=== PATIENT | female | born 1945 | race Caucasian/White ===

== ENCOUNTER 2018-06-21 23:28 | Emergency (ER) | payer MEDICARE, MEDICAID ==
--- NOTE | 2018-06-22 00:05 | ED Physician Chart ---
ED Chief Complaint/HPI - Patient Information Date Seen:: 06/22/18 Time Seen:: 00:00 Chief Complaint:: cough History of Present Illness:: Patient's had cough productive of yellow sputum for 2 days. No fever. Patient' s had a pleuritic chest pain. Allergies:: Allergies Allergy/AdvReac Type Severity Reaction Status Date / Time No Known Allergies Allergy Verified 06/21/18 23:41 Vitals:: Vital Signs - 8 hr 06/21/18 23:35 Temp 98.1 F HR 100 RR 18 BP 138/68 O2 Sat % 98 Historian:: Patient Review:: Nurse's Note Reviewed, Transfer documents Reviewed ED Review of Systems - Review of Systems General/Constitutional: No fever, No chills Skin: No skin lesions Head: No headache Eyes: No loss of vision ENT: No earache Neck: No neck pain Pulmonary: Cough, Sputum GI: No nausea, No vomiting, No diarrhea G/U: No dysuria, No hematuria Musculoskeletal: No bone or joint pain, No muscle pain Psychiatric: Prior psych history Neurological: No syncope ED Past Medical History - Past Medical History Past Medical History: DM, Asthma/COPD, CVA/TIA, PUD/GERD, Other (pneumonitis; status post CVA with left-sided weakness; anxiety; depression; generally bladder ) Family History: Heart disease Social History: Non Smoker, No Alcohol Surgical History: Appendectomy, Cholecystectomy, other (trach; suprapubic catheter) Psychiatricy History: Depression, Other (anxiety) Medication: Reviewed Family Medical History - Family Member Aunt History Unknown: Yes Ethnicity: Unknown Living Status: Unknown Hx Family Cancer: (unknown) Hx Family Coronary Artery Disease: (unknown) Hx Family Congestive Heart Failure: (unknown) Hx Family Hypertension: (unknown) Hx Family Stroke: (unknown) Hx Family Diabetes: (unknown) Hx Family Seizures: (unknown) Hx Family Dementia: (unknown) Hx Family AIDS: (unknown) Hx Family HIV: No Hx Family COPD: (unknown) Hx Family Hepatitis: (unknown) Hx Family Psychiatric Problems: (unknown) Hx Family Tuberculosis: (unknown) Father History Unknown: Yes Ethnicity: Unknown Living Status: Unknown Hx Family Cancer: Yes Hx Family COPD: Yes Mother History Unknown: Yes Ethnicity: Unknown Living Status: Unknown ED Physical Exam - Physical Examination General/Constitutional: Well-developed, well-nourished, Alert, No distress Head: Atraumatic Eyes: Lids, conjuctiva normal Skin: Nl inspection, No rash ENMT: External ears, nose nl, TM canals nl, Nasal exam nl, Lips, teeth, gums nl , Oropharynx nl, Tonsils nl Neck: No nuchal rigidity Respiratory: Nl effort/Exclusion Other Respiratory comments:: harsh prolonged expiratory sounds Cardio Vascular: RRR, No murmur, gallop, rubs, NL S1 S2 GI: No tenderness/rebounding/guarding, No organomegaly, No hernia Other Extremities comments:: Extension deformity of ankles and feet Neuro/Psych: Alert/oriented ED Labs/Radiology/EKG Results - Lab Results Results: Laboratory Results - last 24 hr 06/21/18 06/21/18 00:10 00:10 WBC 9.5 RBC 4.51 Hgb 11.9 L Hct 36.4 L MCV 80.7 L MCH 26.4 L MCHC Differential 32.7 RDW 15.9 Plt Count 302 MPV 8.5 Neutrophils % 60.0 Lymphocytes % 27.4 Monocytes % 6.5 Eosinophils % 5.2 H Basophils % 0.9 Sodium 135 L Potassium 4.1 Chloride 101 Carbon Dioxide 25.9 Anion Gap 12.2 BUN 19 Creatinine 0.6 Est GFR ( Amer) TNP Est GFR (Non-Af Amer) TNP BUN/Creatinine Ratio 31.7 Glucose 236 H Calcium 9.4 - Radiology Results Results: Chest x-ray showed streaking at the left base compatible with bronchitis ED Assessment - Assessment General Assessment: I spoke to Dr. Hutchins and he wants the patient return to her senior living facility. Patient did receive prescription for Levaquin 500 milligrams daily 1 week and be given one 500 mg tablet in the emergency room before discharge ED Septic Shock - . Is Septic Shock (SBP<90, OR Lactate>4 mmol\L) present?: No - <6hrs of presentation: Vital Signs: Vital Signs - 8 hr 06/21/18 23:35 Temp 98.1 F HR 100 RR 18 BP 138/68 O2 Sat % 98 ED Reassessment (Disposition) - Reassessment Reassessment Condition:: Unchanged - Diagnosis Diagnosis:: Bronchitis; diabetes; hyperglycemia - Aftercare/Follow up Instructions Aftercare/Follow-Up Instructions:: Refer to Discharge Instructions - Patient Disposition Discharge/Transfer:: Home Condition at Disposition:: Stable, Unchanged
[2018-06-22 00:16] LABS: % BASOPHILS 0.9 % (0.0-2.0); % EOSINOPHILS 5.2 % (0.0-5.0); % LYMPHOCYTES 27.4 % (20.0-50.0); % MONOCYTES 6.5 % (2.0-10.0); BASOPHILE ABSOLUTE 0.1 Th/cumm (0-0.2); EOSINOPHILE ABSOLUTE 0.5 Th/cmm (0.1-0.4); HEMATOCRIT 36.4 % (41.0-60); HEMOGLOBIN 11.9 gm/dL (12-16); LYMPHOCYTE ABSOLUTE 2.6 Th/cmm (1.5-3.0); MEAN CELL VOLUME 80.7 fl (81-100); MEAN CORPUSCULAR HEMOGLOBIN 26.4 pg (27.0-31.0); MEAN CORPUSCULAR HGB CONC 32.7 pg (28.0-36.0); MEAN PLATELET VOLUME 8.5 fl; MONOCYTE ABSOLUTE 0.6 Th/cmm (0.3-1.0); NEUTROPHILE ABSOLUTE 5.7 Th/cmm (1.8-8.0); PLATELET COUNT 302 Th/cmm (150-400); RED BLOOD COUNT 4.51 Mil/cmm (3.80-5.20); RED CELL DISTRIBUTION WIDTH 15.9 % (11.5-20.0); WHITE BLOOD COUNT 9.5 Th/cmm (4.8-10.8)
[2018-06-22 00:35] LABS: ANION GAP 12.2 (7.0-16.0); BUN - UREA NITROGEN 19 mg/dL (7-25); CALCIUM SERUM 9.4 mg/dL (8.6-10.3); CARBON DIOXIDE 25.9 mEq/L (21.0-31.0); CHLORIDE 101 mEq/L (98-107); CREATININE - SERUM 0.6 mg/dL (0.6-1.2); GLUCOSE 236 mg/dL (70-105); POTASSIUM SERUM 4.1 mEq/L (3.5-5.1); SODIUM SERUM 135 mEq/L (136-145)
--- NOTE | 2018-06-22 08:37 | Diagnostic Imaging Report ---
CHEST X-RAY: AP view INDICATION: Cough COMPARISON: 12/10/2015 FINDINGS: Chronic lung changes are noted with increased left basal lung markings. No focal consolidation or effusions. Borderline prominent heart is noted. Osseous structures are intact. Postsurgical changes of the upper abdomen are noted. IMPRESSION: Increased left basal lung markings which a be chronic when compared to prior exam. Superimposed acute infiltrate is less likely. Please correlate clinically No focal consolidation identified. Chronic lung changes.
== END 2018-06-22 01:55 ==
LOC: ER 23:28
DX: J40 Bronchitis, not specified as acute or chronic (principal); E11.65 Type 2 diabetes mellitus with hyperglycemia; J44.9 Chronic obstructive pulmonary disease, unspecified; K21.9 Gastro-esophageal reflux disease without esophagitis; F32.9 Major depressive disorder, single episode, unspecified; Z90.49 Acquired absence of other specified parts of digestive tract; Z86.73 Personal history of transient ischemic attack (TIA), and cerebral infarction without residual deficits
CPT/HCPCS: 36415-UA; 71045-TC; 80048-TC; 83036-90; 85025-TC